=== PATIENT | female | born 1995 | race Caucasian/White ===

== ENCOUNTER 2016-08-20 06:19 | Emergency (ER) | payer BC ==
[~2016-08-20] VITALS: Ht 177.8 cm; Wt 65.8 kg
[~2016-08-20 06:19] MED LIST: DIPH1TAB25 PO; L-NO1TBD18 PO; OXYC-197 PO; SMTR50T PO
[2016-08-20] MEDS ORDERED: L.AC1CAP6 PO (06:39)
[2016-08-20] MEDS ORDERED: MULT1TAB69 PO (06:39)
[2016-08-20 07:00] LABS: BASOPHILS # (AUTO) 0.1 10^3/uL (0.0-0.1); BASOPHILS % (AUTO) 1 % (0-10); EOSINOPHILS # (AUTO) 0.2 10^3/uL (0.0-0.3); EOSINOPHILS % (AUTO) 1 % (0-10); LYMPHOCYTES # (AUTO) 3.8 X 10^3 (1.0-4.0); LYMPHOCYTES % (AUTO) 24 % (12-44); MEAN CORPUSCULAR HEMOGLOBIN 29 PG (25-34); MEAN CORPUSCULAR HGB CONC 34 G/DL (32-36); MEAN CORPUSCULAR VOLUME 85 FL (80-99); MEAN PLATELET VOLUME 9.5 FL (7.4-10.4); MONOCYTES % (AUTO) 7 % (0-12); NEUTROPHILS # (AUTO) 10.8 X 10^3 (1.8-7.8); NEUTROPHILS % (AUTO) 68 % (42-75); PLATELET COUNT 256 10^3/uL (130-400); RED BLOOD COUNT 4.94 10^6/uL (4.35-5.85); RED CELL DISTRIBUTION WIDTH 13.5 % (10.0-14.5); WHITE BLOOD COUNT 15.8 10^3/uL (4.3-11.0)
[2016-08-20 07:01] LABS: BILIRUBIN,URINE NEGATIVE (NEGATIVE); KETONES,URINE 1+ (NEGATIVE); LEUKOCYTE ESTERASE ,URINE NEGATIVE (NEGATIVE); NITRITE,URINE NEGATIVE (NEGATIVE); PH,URINE 5 (5-9); PROTEIN,URINE 1+ (NEGATIVE); UROBILINOGEN,URINE NORMAL (NORMAL)
[2016-08-20 07:12] LABS: SQUAMOUS EPITHELIAL CELL,UR 0-2 /HPF
[2016-08-20 07:17] LABS: BAND NEUTROPHILS 0 %; BASOPHILS % (MANUAL) 0 %; EOSINOPHILS % (MANUAL) 0 %; LYMPHOCYTES % (MANUAL) 15 %; NEUTROPHILS % (MANUAL) 68 %; REACTIVE LYMPHOCYTES 13 %
[2016-08-20 07:20] LABS: ALANINE AMINOTRANSFERASE 26 U/L (0-55); ALBUMIN 4.1 G/DL (3.2-4.5); ANION GAP 10 MMOL/L (5-14); ASPARTATE AMINO TRANSFERASE 20 U/L (5-34); BILIRUBIN,TOTAL 0.7 MG/DL (0.1-1.0); BLOOD UREA NITROGEN 10 MG/DL (7-18); BUN/CREATININE RATIO 12; CALCIUM 8.9 MG/DL (8.5-10.1); CARBON DIOXIDE 22 MMOL/L (21-32); CHLORIDE 107 MMOL/L (98-107); CREATININE SERUM 0.84 MG/DL (0.60-1.30); GFR ESTIMATED > 60; GLUCOSE 97 MG/DL (70-105); POTASSIUM 3.5 MMOL/L (3.6-5.0); SODIUM 139 MMOL/L (135-145); TOTAL PROTEIN 7.1 G/DL (6.4-8.2)
--- NOTE | 2016-08-20 07:41 | Diagnostic Imaging Report ---
INDICATION: Bowel obstruction, periumbilical pain. There is a presumed IUD device and surgical clips in the right upper pelvis. Bowel gas pattern normal. No suspicious calcifications. No abnormal fecal loading. IMPRESSION: Post interventional changes. No acute finding identified. Dictated by: Dictated on workstation # [id number]
--- NOTE | 2016-08-20 07:44 | ED GI ---
General Chief Complaint: Abdominal/GI Problems Stated Complaint: ABD PAIN,DIARRHEA Nursing Triage Note: PT C/O DIARRHEA WITH ABD PAIN STARTING WEDNESDAY. CRAMPING WORSENING LAST NIGHT. DENIES NAUSEA. Source of Information: Patient Exam Limitations: No Limitations History of Present Illness Time Seen By Provider: 07:40 Initial Comments The patient is a 20-year-old white female who presents with abdominal pain and diarrhea. She reports that this began on Wednesday. She describes the pain as crampy. She stated that in the beginning the stools were just like water and probably 4 times a day. The frequency has increased greatly. She states that in March while in [place] she was diagnosed as having strep throat, scarlet fever, and mono. She was given multiple courses of antibiotics and ultimately developed diarrhea which was positive for Clostridium difficile. She has had 4 recurrences since then. She took Flagyl twice. Her last recurrence was in late June and into July. She reported that she was given oral vancomycin. She had to present a stool specimen each day and when it became negative the vancomycin was stopped. Timing/Duration: 5-6 Days Severity/Quality: Moderate Location: Epigastric Radiation: No Radiation Activities at Onset: None Allergies and Home Medications Allergies Coded Allergies: morphine (Unverified Adverse Reaction, Unknown, 08/20/16) Home Medications L.acidoph & Paracasei,B.lactis 1 Each Capsule, 1 EACH PO DAILY, (Reported) Multivitamin 1 Each Tablet, 1 EACH PO DAILY, (Reported) Review of Systems Constitutional: see HPI EENTM: No Symptoms Reported Respiratory: No Symptoms Reported Cardiovascular: No Symptoms Reported Gastrointestinal: See HPI, Abdominal Pain (crampy), Diarrhea Musculoskeletal: no symptoms reported Skin: no symptoms reported Psychiatric/Neurological: No Symptoms Reported Past Whoebiz-Aymhhw-Aozxwv Hx Patient Social History Alcohol Use: Denies Use Recreational Drug Use: No Smoking Status: Never a Smoker Recent Foreign Travel: No Contact w/Someone Who Travel: No Recent Infectious Disease Expo: No Recent Hopitalizations: Yes (APR 2016--CDIFF, BOWEL OBSTRUCTION) Immunizations Up To Date Tetanus Booster (TDap): More than 5yrs Date of Influenza Vaccine: Feb 27, 2015 Seasonal Allergies Seasonal Allergies: No Surgeries HX Surgeries: Yes (EXPLORATORY LAPAROSCOPY FOR DYSMENORRHEA) Respiratory Hx Respiratory Disorders: No Cardiovascular Hx Cardiac Disorders: No Neurological Hx Neurological Disorders: Yes Neurological Disorders: Headaches /Migraines Reproductive System Hx Reproductive Disorders: No Sexually Transmitted Disease: No HIV/AIDS: No Female Reproductive Disorders: Denies Genitourinary Hx Genitourinary Disorders: No Gastrointestinal Hx Gastrointestinal Disorders: No Musculoskeletal Hx Musculoskeletal Disorders: No Endocrine Hx Endocrine Disorders: No HEENT HX ENT Disorders: No Cancer Hx Cancer: No Psychosocial Hx Psychiatric Problems: No Integumentary HX Skin/Integumentary Disorder: No Blood Transfusions Hx Blood Disorders: No Physical Exam Vital Signs VS - Last 72 Hours, by Label 08/20/16 06:34 Temp 99.5 Pulse 117 Resp 24 B/P (MAP) 115/95 Capillary Refill : General Appearance: mild distress HEENT: normal ENT inspection Neck: full range of motion Respiratory: chest non-tender, lungs clear, normal breath sounds, no respiratory distress, no accessory muscle use Cardiovascular: normal peripheral pulses, regular rate, rhythm, no edema, no gallop, no JVD, no murmur Gastrointestinal: normal bowel sounds, non tender, soft, no organomegaly, no pulsatile mass Extremities: normal range of motion, non-tender, normal inspection, no pedal edema, no calf tenderness, normal capillary refill, pelvis stable Back: no CVA tenderness Skin: normal color, warm/dry Lymphatic: no adenopathy Progress/Results/Core Measures Results/Orders Lab Results Laboratory Tests Test 08/20/16 06:30 08/20/16 06:45 Range/Units Urine Color YELLOW Urine Clarity CLEAR Urine pH 5 5-9 Urine Specific [place] 1.030 H 1.016-1.022 Urine Protein 1+ H NEGATIVE Urine Glucose (UA) NEGATIVE NEGATIVE Urine Ketones 1+ H NEGATIVE Urine Nitrite NEGATIVE NEGATIVE Urine Bilirubin NEGATIVE NEGATIVE Urine Urobilinogen NORMAL NORMAL MG/DL Urine Leukocyte Esterase NEGATIVE NEGATIVE Urine RBC (Auto) NEGATIVE NEGATIVE Urine RBC NONE /HPF Urine WBC NONE /HPF Urine Squamous Epithelial Cells 0-2 /HPF Urine Crystals NONE /LPF Urine Bacteria NEGATIVE /HPF Urine Casts NONE /LPF Urine Mucus SMALL H /LPF Urine Culture Indicated NO White Blood Count 15.8 H 4.3-11.0 10^3/uL Red Blood Count 4.94 4.35-5.85 10^6/uL Hemoglobin 14.3 11.5-16.0 G/DL Hematocrit 42 35-52 % Mean Corpuscular Volume 85 80-99 FL Mean Corpuscular Hemoglobin 29 25-34 PG Mean Corpuscular Hemoglobin Concent 34 32-36 G/DL Red Cell Distribution Width 13.5 10.0-14.5 % Platelet Count 256 130-400 10^3/uL Mean Platelet Volume 9.5 7.4-10.4 FL Neutrophils (%) (Auto) 68 42-75 % Lymphocytes (%) (Auto) 24 12-44 % Monocytes (%) (Auto) 7 0-12 % Eosinophils (%) (Auto) 1 0-10 % Basophils (%) (Auto) 1 0-10 % Neutrophils # (Auto) 10.8 H 1.8-7.8 X 10^3 Lymphocytes # (Auto) 3.8 1.0-4.0 X 10^3 Monocytes # (Auto) 1.0 0.0-1.0 X 10^3 Eosinophils # (Auto) 0.2 0.0-0.3 10^3/uL Basophils # (Auto) 0.1 0.0-0.1 10^3/uL Neutrophils % (Manual) 68 % Lymphocytes % (Manual) 15 % Monocytes % (Manual) 4 % Eosinophils % (Manual) 0 % Basophils % (Manual) 0 % Band Neutrophils 0 % Reactive Lymphocytes 13 % Blood Morphology Comment NORMAL Sodium Level 139 135-145 MMOL/L Potassium Level 3.5 L 3.6-5.0 MMOL/L Chloride Level 107 98-107 MMOL/L Carbon Dioxide Level 22 21-32 MMOL/L Anion Gap 10 5-14 MMOL/L Blood Urea Nitrogen 10 7-18 MG/DL Creatinine 0.84 0.60-1.30 MG/DL Estimat Glomerular Filtration Rate > 60 BUN/Creatinine Ratio 12 Glucose Level 97 70-105 MG/DL Calcium Level 8.9 8.5-10.1 MG/DL Total Bilirubin 0.7 0.1-1.0 MG/DL Aspartate Amino Transf (AST/SGOT) 20 5-34 U/L Alanine Aminotransferase (ALT/SGPT) 26 0-55 U/L Alkaline Phosphatase 52 40-136 U/L Total Protein 7.1 6.4-8.2 G/DL Albumin 4.1 3.2-4.5 G/DL Micro Results Microbiology 08/20/16 C. difficile GDH Antigen & Toxins - Final, Complete My Orders Orders - ADRIENNE GONSALES MD Cbc With Automated Diff (08/20/16 06:47) Comprehensive Metabolic Panel (08/20/16 06:47) Ua Culture If Indicated (08/20/16 06:47) Abdomen/Kub 1view (08/20/16 06:47) Urine Bedside (08/20/16 06:58) Saline Lock/Iv-Start (08/20/16 06:58) Manual Differential (08/20/16 06:45) C Difficile Ag + Toxin A/B. (08/20/16 07:35) Ns Iv 1000 Ml (Sodium Chloride 0.9%) (08/20/16 07:45) Vital Signs/I&O Vital Sign - Last 12Hours 08/20/16 06:34 Temp 99.5 Pulse 117 Resp 24 B/P (MAP) 115/95 Point of Care Testing Urine -Bedside: Negative Departure Communication Progress Notes The stool for C. difficile was positive. This represents a recurrence from previous. The treatment area is complicated in follow-up as she is moving perhaps as early as next week to a town near [place]. She is previously lived there and it may be possible to arrange follow-up with her physician during those times. Impression Impression: Primary Impression: Recurrent Clostridium difficile diarrhea Disposition: 01 HOME, SELF-CARE Departure-Patient Inst. Decision time for Depature: 09:40 Referrals: DINESH YANEZ DO (PCP/Family) Primary Care Physician Add. Discharge Instructions: All discharge instructions reviewed with patient and/or family. Voiced understanding. Take plenty of liquids and a rather bland diet. Complete treatment with Questran and oral vancomycin. When you arrive at your new residence YOU should make plans to see a physician in follow-up Given here previous number of recurrences it may ultimately be necessary to seek fecal transplant in fusion to eradicate the clostridium Scripts Vancomycin HCl (Vancomycin HCl) 1 Gm Vial 0.5 GM PO QID for C. difficile for 14 Days, VIAL Prov: ADRIENNE GONSALES MD 08/20/16 Cholestyramine/Aspartame (Questran Light Powder) 210 Gm Powder 17 GM PO twice a day for 30 Days, EA Prov: ADRIENNE GONSALES MD 08/20/16 ADRIENNE GONSALES MD August 20, 2016 07:44
[2016-08-20] MEDS ORDERED: NS IV 1000 ML 1,000 ML IV SCH (07:45)
[2016-08-20] MEDS ORDERED: VANC1VIA PO (09:57)
[2016-08-20] MEDS ORDERED: CHOL210P2 PO (09:57)
[2016-08-21] MEDS ORDERED: PRD20T PO (13:17)
== END 2016-08-20 10:11 ==
LOC: EDUNIT# 06:19 → ER 06:24
DX: A04.7 Enterocolitis due to Clostridium difficile (principal)
CPT/HCPCS: 36415; 74000; 80053; 81000; 84703; 85007; 85027; 87324; 87449; 96360; 96361

== ENCOUNTER 2016-08-21 12:28 | Emergency (ER) | payer BC ==
[~2016-08-21] VITALS: Ht 177.8 cm; Wt 65.8 kg
[~2016-08-21 12:28] MED LIST changes: +CHOL210P2 PO; +L.AC1CAP6 PO; +MULT1TAB69 PO; +VANC1VIA PO
[2016-08-21] MEDS ORDERED: FAMOTIDINE 20MG/2ML IV (PEPCID) IVP ONE (13:15)
[2016-08-21] MEDS ORDERED: methylPREDNISolone 125 MG (Solu-MEDROL) VIAL IVP ONE (13:15)
[2016-08-21] MEDS ORDERED: VANCOMYCIN ORAL SUSPENSION 60 ML BOTTLE PO SCH ×2 (13:15→13:45)
[2016-08-21] MEDS ORDERED: diphenhydrAMINE 50 MG/ML INJ (BENADRYL) IVP ONE (13:15)
[2016-08-21] MEDS ORDERED: PRD20T PO (13:17)
--- NOTE | 2016-08-21 13:17 | ED Integumentary General ---
General Chief Complaint: Allergic Reaction Stated Complaint: ALLERGIC REACTION/HIVES Source: patient Exam Limitations: no limitations History of Present Illness Time seen by provider: 13:14 Initial Comments To ER with allergic reaction/hives that are intensely pruritic. This began behind her ears this morning and has spread to both shoulders she also has on her left leg. She was started on Questran yesterday for Clostridium difficile recurrence. She is also being started on oral vancomycin Timing/Duration: changing over time Severity: moderate Location: generalized Allergies and Home Medications Allergies Coded Allergies: morphine (Unverified Adverse Reaction, Unknown, 08/20/16) Home Medications Cholestyramine/Aspartame 210 Gm Powder, 17 GM PO twice a day for 30 Days Prescribed by: ADRIENNE GONSLAES on 08/20/16 0957 L.acidoph & Paracasei,B.lactis 1 Each Capsule, 1 EACH PO DAILY, (Reported) Multivitamin 1 Each Tablet, 1 EACH PO DAILY, (Reported) Prednisone 20 Mg Tab, 20 MG PO DAILY, #2 Prescribed by: VETO MCGREGOR on 08/21/16 1317 Vancomycin HCl 1 Gm Vial, 0.5 GM PO QID for 14 Days Prescribed by: ADRIENNE GONSALES on 08/20/16 0957 Constitutional: see HPI EENTM: see HPI Respiratory: no symptoms reported Cardiovascular: no symptoms reported Genitourinary: no symptoms reported Musculoskeletal: no symptoms reported Skin: no symptoms reported Psychiatric/Neurological: No Symptoms Reported Endocrine: No Symptoms Reported Hematologic/Lymphatic: No Symptoms Reported Past Edraquk-Uxacdn-Uscijw Hx Patient Social History Alcohol Use: Denies Use Recreational Drug Use: No Smoking Status: Never a Smoker Recent Foreign Travel: No Contact w/Someone Who Travel: No Recent Hopitalizations: Yes (APR 2016--CDIFF, BOWEL OBSTRUCTION) Immunizations Up To Date Tetanus Booster (TDap): More than 5yrs Date of Influenza Vaccine: Feb 27, 2015 Seasonal Allergies Seasonal Allergies: No Surgeries HX Surgeries: Yes (EXPLORATORY LAPAROSCOPY FOR DYSMENORRHEA) Respiratory Hx Respiratory Disorders: No Cardiovascular Hx Cardiac Disorders: No Neurological Hx Neurological Disorders: Yes Neurological Disorders: Headaches /Migraines Reproductive System Hx Reproductive Disorders: No Sexually Transmitted Disease: No HIV/AIDS: No Female Reproductive Disorders: Denies Genitourinary Hx Genitourinary Disorders: No Gastrointestinal Hx Gastrointestinal Disorders: No Musculoskeletal Hx Musculoskeletal Disorders: No Endocrine Hx Endocrine Disorders: No HEENT HX ENT Disorders: No Cancer Hx Cancer: No Psychosocial Hx Psychiatric Problems: No Integumentary HX Skin/Integumentary Disorder: No Blood Transfusions Hx Blood Disorders: No Physical Exam Vital Signs Vital Sign - Last 12Hours 08/21/16 13:00 Temp 98.0 Pulse 100 Resp 18 B/P (MAP) 117/77 O2 Delivery Room Air Capillary Refill : General Appearance: WD/WN, no apparent distress HEENT: PERRL/EOMI, normal ENT inspection Neck: non-tender, full range of motion Cardiovascular: regular rate, rhythm, no murmur Respiratory: no respiratory distress, no accessory muscle use Gastrointestinal: normal bowel sounds, non tender, soft Neurologic/Psychiatric: alert, normal mood/affect, oriented x 3 Skin: normal color, warm/dry Skin Problem Location: other (hives to the neck, both shoulders, left leg) Progress/Results/Core Measures Results/Orders My Orders Orders - VETO MCGREGOR APRN Saline Lock/Iv-Start (08/21/16 13:12) Famotidine Injection (Pepcid Injection) (08/21/16 13:15) Methylprednisolone Sod Succ (Solu-Medrol (08/21/16 13:15) Diphenhydramine Injection (Benadryl Inje (08/21/16 13:15) Vancomycin Oral Suspension (Vancomycin O (08/21/16 13:15) Vancomycin Oral Suspension (Vancomycin O (08/21/16 13:45) Espinal Syrup (Espinal Syrup) 30 Ml, Vanco (08/21/16 18:00) Medications Given in ED Current Medications Medications Dose Ordered Sig/Yaw Route Start Time Stop Time Status Last Admin Dose Admin Diphenhydramine HCl 25 mg ONCE ONCE IVP 08/21/16 13:15 08/21/16 13:16 DC 08/21/16 13:28 25 MG Famotidine 20 mg ONCE ONCE IVP 08/21/16 13:15 08/21/16 13:16 DC 08/21/16 13:25 20 MG Methylprednisolone Sodium Succinate 125 mg ONCE ONCE IVP 08/21/16 13:15 08/21/16 13:16 DC 08/21/16 13:29 125 MG Vital Signs/I&O Vital Sign - Last 12Hours 08/21/16 13:00 Temp 98.0 Pulse 100 Resp 18 B/P (MAP) 117/77 O2 Delivery Room Air Departure Impression Impression: Primary Impression: Urticaria Disposition: 01 HOME, SELF-CARE Condition: Stable Departure-Patient Inst. Decision time for Depature: 13:16 Referrals: DINESH YANEZ DO (PCP/Family) Primary Care Physician Patient Instructions: [place] (DC) Add. Discharge Instructions: 1. Continue to take Benadryl one tablet every 4-6 hours for the next 24 hours 2. Steroids as directed 3. Return to ER for any worsening All discharge instructions reviewed with patient and/or family. Voiced understanding. Scripts Prednisone (Prednisone) 20 Mg Tab 20 MG PO DAILY, #2 TAB Prov: VETO MCGREGOR INCLUSION SPECIAL EDUCATOR 08/21/16 VETO MCGREGOR APRN August 21, 2016 13:17
[2016-08-21] MEDS ORDERED: VANCOMYCIN ORAL 250 MG/5 ML 60 ML PO SCH ×2 (18:00)
== END 2016-08-21 14:24 | disposition home or self-care (01) ==
LOC: EDUNIT# 12:28 → ER 12:31
DX: L50.0 Allergic urticaria (principal)
CPT/HCPCS: 96374; 96375